=== PATIENT | female | born 1960 | race Caucasian/White ===

== ENCOUNTER 2018-03-12 15:35 | Inpatient (IN) | payer OTHER ==
[~2018-03-12] VITALS: Ht 160 cm; Wt 72.6 kg
[2018-03-12 15:38] VITALS: Ht 160 cm; Wt 72.6 kg
[2018-03-12 16:11] LABS: PLATELET COUNT 272 x10^3mcL (130-400); RED CELL DISTRIBUTION WIDTH 13.6 % (11.5-14.5)
[2018-03-12 16:17] LABS: CALCIUM 9.8 mg/dL (8.5-10.1); CARBON DIOXIDE 23.8 mmol/L (21-32); CHLORIDE SERUM 108 mmol/L (98-107); CREATININE SERUM 0.9 mg/dL (0.6-1.0); GFR1 > 60 mL/min; GLUCOSE SERUM 98 mg/dL (74-106); POTASSIUM SERUM 4.1 mmol/L (3.5-5.1); SODIUM SERUM 140 mmol/L (136-145)
[2018-03-12] MEDS ORDERED: LISINOPRIL40 MG PO (16:22)
[2018-03-12] MEDS ORDERED: TENORMIN50 MG PO (16:22)
[2018-03-12] MEDS ORDERED: ASPIR 8181 MG PO (16:22)
[2018-03-12] MEDS ORDERED: NOR5 PO (16:22)
[2018-03-12] MEDS ORDERED: ASMANEX TW0.22 MG/A1 IH (16:23)
[2018-03-12] MEDS ORDERED: ZOCOR20 MG PO (16:23)
[2018-03-12] MEDS ORDERED: METFORMIN HYDR500 M1 PO (16:23)
[2018-03-12] MEDS ORDERED: XOPENEX1.25 MG/3 (16:24)
[2018-03-12 17:21] VITALS: BP 138/58
[2018-03-12 18:59] LABS: MAGNESIUM 2.2 mg/dL (1.8-2.4)
[2018-03-12 19:01] LABS: CHOLESTEROL/HDL RATIO 2.1
[2018-03-12 21:36] VITALS: BP 108/50
[2018-03-12 21:40] LABS: microscopic required? NO
[2018-03-12 21:59] LABS: AMPHETAMINE QUAL UR NONE DETECTED (See below)
[2018-03-12 22:03] LABS: urine erythrocyte NEGATIVE (NEGATIVE)
[2018-03-13 05:48] VITALS: BP 130/76
[2018-03-13 06:22] LABS: BASOPHIL % 0.5 % (0-2); PLATELET COUNT 241 x10^3mcL (130-400); RED CELL DISTRIBUTION WIDTH 14.2 % (11.5-14.5)
[2018-03-13 07:05] LABS: CALCIUM 9.2 mg/dL (8.5-10.1); CARBON DIOXIDE 26.1 mmol/L (21-32); CHLORIDE SERUM 108 mmol/L (98-107); CREATININE SERUM 0.8 mg/dL (0.6-1.0); GFR1 > 60 mL/min; GLUCOSE SERUM 94 mg/dL (74-106); POTASSIUM SERUM 4.5 mmol/L (3.5-5.1); SODIUM SERUM 140 mmol/L (136-145)
[2018-03-13 10:02] VITALS: BP 131/59
[2018-03-13 13:18] VITALS: BP 130/60
[2018-03-13 18:03] VITALS: BP 148/77
[2018-03-13 21:02] VITALS: BP 127/60
[2018-03-14 05:32] VITALS: BP 137/61
[2018-03-14 13:45] VITALS: BP 147/75
[2018-03-14 15:33] VITALS: BP 147/75
[2018-03-14 17:46] VITALS: BP 132/67
== END 2018-03-14 19:30 | disposition other institution (70) | DRG 313 ==
LOC: ED 15:35 → DU 16:50
PROVIDERS: Emergency Medicine; Internal Medicine
DX: R07.89 Other chest pain (principal); I25.10 Atherosclerotic heart disease of native coronary artery without angina pectoris; I10 Essential (primary) hypertension; R09.1 Pleurisy; E11.9 Type 2 diabetes mellitus without complications; J44.9 Chronic obstructive pulmonary disease, unspecified; I25.2 Old myocardial infarction; Z88.8 Allergy status to other drugs, medicaments and biological substances; E78.00 Pure hypercholesterolemia, unspecified
CPT/HCPCS: 82962; 83880; A9500; J1885; J2785; J7030; Q0092